=== PATIENT | male | born 1980 | race Hispanic/Latino ===

== ENCOUNTER 2016-10-26 22:30 | Emergency (ER) | payer SELFPAY ==
--- NOTE | 2016-10-27 02:48 | Emergency Department Report ---
- General Chief Complaint: Upper Respiratory Infection Stated Complaint: COLD SX Time Seen by Provider: 10/27/16 02:28 Source: patient, family Mode of arrival: Ambulatory Limitations: No Limitations - History of Present Illness Initial Comments: Presents complaining of head cold times couple of days. Reports headache, intermittent cough productive of clear-yellow sputum, runny nose, nasal congestion and body aches. Denies change or blurred vision, fever, chills, nausea, vomiting, abdominal pain or discomfort, chest pain, difficulty breathing or SOB, male symptoms. Denies known sick contacts. No other acute complaints today. - Related Data Previous Rx's Medication Instructions Recorded Last Taken Type HYDROcodone/APAP 5-325 [[place] 1 each PO Q6HR PRN #16 tablet 06/06/15 Unknown Rx 5/325] Sulfamethoxazole/Trimethoprim 1 each PO Q12H #20 tablet 06/06/15 Unknown Rx [Bactrim DS TAB] Diclofenac Sodium 75 mg PO BID #20 tablet.dr 02/07/16 Unknown Rx Famotidine [Pepcid] 20 mg PO BID #40 tablet 02/22/16 Unknown Rx Prednisone [predniSONE 10 mg 10 mg PO .TAPER #1 tab.ds.pk 02/22/16 Unknown Rx (6-Day Pack, 21 Tabs)] hydrOXYzine HCL [Atarax] 25 mg PO Q6HR PRN #20 tablet 02/22/16 Unknown Rx Clotrimazole [Jock Itch] 15 gm TP BID #1 cream..g. 08/11/16 Unknown Rx Hydrocortisone 1% [Hydrocortisone 1 applicatio TP BID #1 tube 08/11/16 Unknown Rx 1% CREAM] Naproxen [Naprosyn TAB] 500 mg PO BID PRN #20 tablet 08/11/16 Unknown Rx Neomycn/Baci Zn/Pmyx Bs/Pramox 28.4 gm TP BID #1 oint...g. 08/11/16 Unknown Rx [Triple Antibiotic Plus Ointmnt] Fluticasone [Flonase] 1 spray NS QDAY #1 bottle 10/27/16 Unknown Rx Ibuprofen [Motrin] 800 mg PO Q8HR PRN #10 tablet 10/27/16 Unknown Rx Loratadine/Pseudoephedrine 1 tab PO Q12H #30 tablet 10/27/16 Unknown Rx [Claritin-D 12HR] Allergies Allergy/AdvReac Type Severity Reaction Status Date / Time No Known Allergies Allergy Unverified 06/06/15 09:07 ED Review of Systems ROS: Stated complaint: COLD SX Other details as noted in HPI Comment: All other systems reviewed and negative ED Past Medical Hx - Past Medical History Previous Medical History?: No - Surgical History Additional Surgical History: l knee surgery - Social History Smoking Status: Current Every Day Smoker Substance Use Type: None - Medications Home Medications: Home Medications Medication Instructions Recorded Confirmed Last Taken Type HYDROcodone/APAP 5-325 [[place] 1 each PO Q6HR PRN #16 tablet 06/06/15 Unknown Rx 5/325] Sulfamethoxazole/Trimethoprim 1 each PO Q12H #20 tablet 06/06/15 Unknown Rx [Bactrim DS TAB] Diclofenac Sodium 75 mg PO BID #20 tablet.dr 02/07/16 Unknown Rx Famotidine [Pepcid] 20 mg PO BID #40 tablet 02/22/16 Unknown Rx Prednisone [predniSONE 10 mg 10 mg PO .TAPER #1 tab.ds.pk 02/22/16 Unknown Rx (6-Day Pack, 21 Tabs)] hydrOXYzine HCL [Atarax] 25 mg PO Q6HR PRN #20 tablet 02/22/16 Unknown Rx Clotrimazole [Jock Itch] 15 gm TP BID #1 cream..g. 08/11/16 Unknown Rx Hydrocortisone 1% [Hydrocortisone 1 applicatio TP BID #1 tube 08/11/16 Unknown Rx 1% CREAM] Naproxen [Naprosyn TAB] 500 mg PO BID PRN #20 tablet 08/11/16 Unknown Rx Neomycn/Baci Zn/Pmyx Bs/Pramox 28.4 gm TP BID #1 oint...g. 08/11/16 Unknown Rx [Triple Antibiotic Plus Ointmnt] Fluticasone [Flonase] 1 spray NS QDAY #1 bottle 10/27/16 Unknown Rx Ibuprofen [Motrin] 800 mg PO Q8HR PRN #10 tablet 10/27/16 Unknown Rx Loratadine/Pseudoephedrine 1 tab PO Q12H #30 tablet 10/27/16 Unknown Rx [Claritin-D 12HR] ED Physical Exam - General Limitations: No Limitations General appearance: alert, in no apparent distress - Head Head exam: Present: atraumatic, normocephalic, normal inspection - Eye Eye exam: Present: normal appearance, PERRL, EOMI. Absent: scleral icterus, conjunctival injection, periorbital swelling, periorbital tenderness - ENT ENT exam: Present: normal exam, normal orophraynx, mucous membranes moist, TM's normal bilaterally, normal external ear exam - Neck Neck exam: Present: normal inspection, full ROM. Absent: tenderness, meningismus, lymphadenopathy - Respiratory Respiratory exam: Present: normal lung sounds bilaterally. Absent: respiratory distress, wheezes, rales, rhonchi, stridor, chest wall tenderness, accessory muscle use, decreased breath sounds, prolonged expiratory - Cardiovascular Cardiovascular Exam: Present: regular rate, normal rhythm - GI/Abdominal GI/Abdominal exam: Present: soft, normal bowel sounds. Absent: tenderness - Extremities Exam Extremities exam: Present: normal inspection, full ROM, normal capillary refill. Absent: tenderness, pedal edema, joint swelling - Back Exam Back exam: Present: normal inspection, full ROM. Absent: tenderness - Neurological Exam Neurological exam: Present: alert, oriented X3, normal gait. Absent: motor sensory deficit - Psychiatric Psychiatric exam: Present: normal affect, normal mood - Skin Skin exam: Present: warm, dry, intact, normal color. Absent: rash, cyanosis, diaphoretic, erythema, petechiae, pallor, abrasion, ecchymosis ED Course Vital Signs 10/26/16 22:45 Temperature 98.2 F Pulse Rate 103 H Respiratory 18 Rate Blood Pressure 120/85 Blood Pressure 120/85 [Left] O2 Sat by Pulse 100 Oximetry Critical care attestation.: If time is entered above; I have spent that time in minutes in the direct care of this critically ill patient, excluding procedure time. ED Disposition Clinical Impression: URI (upper respiratory infection) Qualifiers: URI type: unspecified URI Qualified Code(s): J06.9 - Acute upper respiratory infection, unspecified Disposition: DISCHARGED TO HOME OR SELFCARE Is pt being admited?: No Does the pt Need Aspirin: No Condition: Stable Instructions: Upper Respiratory Infection (ED) Referrals: PRIMARY CARE, [Primary Care Provider] - 2-3 Days [facility] [Outside] - 2-3 Days
[2016-10-27 03:42] VITALS: BP 114/73
== END 2016-10-27 03:43 | disposition home or self-care (01) ==
LOC: ED 22:30
DX: J06.9 Acute upper respiratory infection, unspecified (principal); F17.200 Nicotine dependence, unspecified, uncomplicated
CPT/HCPCS: 99282

== ENCOUNTER 2018-10-16 08:30 | Emergency (ER) | payer SELFPAY ==
[2018-10-16 09:20] LABS: Bacteria,Urine 1+ /HPF (Negative); Bilirubin,Urine NEG (Negative); Blood,Urine NEG (Negative); Color,Urine Yellow (Yellow); Mucus,Urine FEW /HPF; Protein,Urine <15 mg/dL mg/dL (Negative)
[2018-10-16] MEDS ORDERED: IBUPROFEN PO ONE (09:41)
[2018-10-16] MEDS ORDERED: XYLOCAINE 1% 20 mL INFILTRATI ONE (09:41)
--- NOTE | 2018-10-16 09:45 | Emergency Department Report ---
<YESI PLEITEZ BELINDA - Last Filed: 10/16/18 10:21> ED General Adult HPI - General Chief complaint: Abdominal Pain Stated complaint: LOWER BACK PAIN/BOIL ON GROIN AREA Time Seen by Provider: 10/16/18 09:32 - Related Data Previous Rx's Medication Instructions Recorded Last Taken Type Sulfamethoxazole/Trimethoprim 1 each PO Q12H #20 tablet 06/06/15 Unknown Rx [Bactrim DS TAB] Prednisone [predniSONE 10 mg 10 mg PO .TAPER #1 tab.ds.pk 02/22/16 Unknown Rx (6-Day Pack, 21 Tabs)] Naproxen [Naprosyn TAB] 500 mg PO BID PRN #20 tablet 08/11/16 Unknown Rx Neomycn/Bacitrc/Polymyx/Pramox 28.4 gm TP BID #1 oint...g. 08/11/16 Unknown Rx [Triple Antibiotic Plus Ointmnt] Fluticasone [Flonase] 1 spray NS QDAY #1 bottle 10/27/16 Unknown Rx Benzonatate [Tessalon Perles] 100 mg PO Q8HR #15 capsule 08/03/18 Unknown Rx Clindamycin [Clindamycin CAP] 300 mg PO Q8H 7 Days cap 10/16/18 Unknown Rx HYDROcodone/APAP 5-325 [[place] 1 each PO Q6HR PRN #15 tablet 10/16/18 Unknown Rx 5/325] Ibuprofen [Motrin] 800 mg PO Q8HR PRN #20 tablet 10/16/18 Unknown Rx Metformin HCl 500 mg PO BID #60 tablet 10/16/18 Unknown Rx methOCARBAMOL [Robaxin TAB] 500 mg PO Q6H PRN #15 tablet 10/16/18 Unknown Rx Amoxicillin/Potassium Clav 1 each PO BID #10 tablet 10/31/18 Unknown Rx [Augmentin 875-125 Tablet] Benzonatate [Tessalon Perles] 100 mg PO Q8HR PRN #30 capsule 10/31/18 Unknown Rx Fluticasone [Flonase] 1 spray NS QDAY #1 bottle 10/31/18 Unknown Rx Allergies Allergy/AdvReac Type Severity Reaction Status Date / Time No Known Allergies Allergy Unverified 06/06/15 09:07 ED Past Medical Hx - Medications Home Medications: Home Medications Medication Instructions Recorded Confirmed Last Taken Type Sulfamethoxazole/Trimethoprim 1 each PO Q12H #20 tablet 06/06/15 Unknown Rx [Bactrim DS TAB] Prednisone [predniSONE 10 mg 10 mg PO .TAPER #1 tab.ds.pk 02/22/16 Unknown Rx (6-Day Pack, 21 Tabs)] Naproxen [Naprosyn TAB] 500 mg PO BID PRN #20 tablet 08/11/16 Unknown Rx Neomycn/Bacitrc/Polymyx/Pramox 28.4 gm TP BID #1 oint...g. 08/11/16 Unknown Rx [Triple Antibiotic Plus Ointmnt] Fluticasone [Flonase] 1 spray NS QDAY #1 bottle 10/27/16 Unknown Rx Benzonatate [Tessalon Perles] 100 mg PO Q8HR #15 capsule 08/03/18 Unknown Rx Clindamycin [Clindamycin CAP] 300 mg PO Q8H 7 Days cap 10/16/18 Unknown Rx HYDROcodone/APAP 5-325 [[place] 1 each PO Q6HR PRN #15 tablet 10/16/18 Unknown Rx 5/325] Ibuprofen [Motrin] 800 mg PO Q8HR PRN #20 tablet 10/16/18 Unknown Rx Metformin HCl 500 mg PO BID #60 tablet 10/16/18 Unknown Rx methOCARBAMOL [Robaxin TAB] 500 mg PO Q6H PRN #15 tablet 10/16/18 Unknown Rx Amoxicillin/Potassium Clav 1 each PO BID #10 tablet 10/31/18 Unknown Rx [Augmentin 875-125 Tablet] Benzonatate [Tessalon Perles] 100 mg PO Q8HR PRN #30 capsule 10/31/18 Unknown Rx Fluticasone [Flonase] 1 spray NS QDAY #1 bottle 10/31/18 Unknown Rx ED Disposition Clinical Impression: Abscess, Muscle strain, Hyperglycemia Disposition: -01 TO HOME OR SELFCARE Condition: Stable Instructions: Muscle Strain (ED), Abscess Incision and Drainage (ED), Diabetes Mellitus Type 2 in Adults (ED), Abscess (ED) Additional Instructions: Please take the packing out of the abscess in 2-3 days. Please use a warm compress as this will help with healing and discomfort. Please ensure to take all of your antibiotics. Prescriptions: Clindamycin [Clindamycin CAP] 300 mg PO Q8H 7 Days cap HYDROcodone/APAP 5-325 [[place] 5/325] 1 each PO Q6HR PRN #15 tablet PRN Reason: Pain Ibuprofen [Motrin] 800 mg PO Q8HR PRN #20 tablet PRN Reason: Pain Metformin HCl 500 mg PO BID #60 tablet methOCARBAMOL [Robaxin TAB] 500 mg PO Q6H PRN #15 tablet PRN Reason: Pain Referrals: ANDERSON MELCHOR MD [Primary Care Provider] - 3-5 Days Forms: Work/School Release Form(ED) I & D Note - I & D Note I & D Note: The area was prepared and draped in the usual, sterile manner. The site was anesthetized with 3 mL of 2% lidocaine with epinephrine. A linear incision along the local skin lines was made and the purulent material expressed. The abcess was explored thoroughly and sequestered pockets were opened. Bleeding was minimal. Packing: idodoform. Followup: The patient tolerated the procedure well without complications. Standard post-procedure care was explained and return precautions are given. <SHIVANI CARTER - Last Filed: 12/02/18 09:01> ED General Adult HPI - General Source: patient Mode of arrival: Ambulatory Limitations: No Limitations - History of Present Illness Initial comments: Patient is a 38-year-old male who is presenting with some right back pain has been present for the past several days. Patient states that it hurts worse when he moves and is worried he may have a kidney stone despite having no urinary frequency dysuria or hematuria. 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 Patient also is complaining of right groin abscess of his developed over the last 2 days. Patient states that his pain in this area as 8 out of 10 in severity. There is no radiation of the pain from the right groin to the right back. Patient denies any nausea vomiting fevers chills at this time. Patient denies any past medical problems. Patient does have a family history of diabetes. ED Review of Systems ROS: Stated complaint: LOWER BACK PAIN/BOIL ON GROIN AREA Other details as noted in HPI Comment: All other systems reviewed and negative ED Past Medical Hx - Past Medical History Previous Medical History?: No - Surgical History Past Surgical History?: Yes Additional Surgical History: l knee surgery - Social History Smoking Status: Current Every Day Smoker Substance Use Type: None ED Physical Exam - General Limitations: No Limitations General appearance: alert, in no apparent distress - Head Head exam: Present: atraumatic, normocephalic - Eye Eye exam: Present: normal appearance - ENT ENT exam: Present: mucous membranes moist - Neck Neck exam: Present: normal inspection - Respiratory Respiratory exam: Present: normal lung sounds bilaterally. Absent: respiratory distress, wheezes, rales - Cardiovascular Cardiovascular Exam: Present: regular rate, normal rhythm. Absent: systolic murmur, diastolic murmur, rubs, gallop - GI/Abdominal GI/Abdominal exam: Present: soft, normal bowel sounds. Absent: distended, tenderness, guarding, rebound - Rectal Rectal exam: Present: deferred - exam: Absent: normal inspection (patient has a quarter-sized area of erythema with central fluctuance in the right groin. This does not appear to involve the scrotum or penis.) - Extremities Exam Extremities exam: Present: normal inspection - Back Exam Back exam: Present: normal inspection, tenderness (right paraspinal lumbar area shows some mild tenderness. There is no overlying erythema or rash.) - Neurological Exam Neurological exam: Present: alert, oriented X3 - Psychiatric Psychiatric exam: Present: normal affect, normal mood - Skin Skin exam: Present: warm, dry, intact, normal color. Absent: rash ED Course Vital Signs 10/16/18 08:53 Temperature 98.3 F Pulse Rate 82 Respiratory 20 Rate Blood Pressure 125/81 O2 Sat by Pulse 96 Oximetry - Reevaluation(s) Reevaluation #1: 10/16/18 09:44 Patient's back pain likely musculoskeletal in nature and will be treated with NSAIDs and muscle relaxant. Patient be sent to a treatment room for I&D of his abscess. Of note patient's urinalysis that was ordered from triage to show a greater than 500 glucose. Accu-Chek will be performed as well. Patient does have a family history diabetes in his father. Critical care attestation.: If time is entered above; I have spent that time in minutes in the direct care of this critically ill patient, excluding procedure time. ED Disposition Is pt being admited?: No Does the pt Need Aspirin: No Time of Disposition: 10:20
[2018-10-18 11:41] VITALS: BP 125/81
== END 2018-10-16 10:35 | disposition home or self-care (01) ==
LOC: ED 08:30
DX: L02.214 Cutaneous abscess of groin (principal); M54.5 Low back pain; F17.200 Nicotine dependence, unspecified, uncomplicated
CPT/HCPCS: 81001; 82962

== ENCOUNTER 2018-10-31 05:15 | Emergency (ER) | payer SELFPAY ==
[2018-10-31 05:29] VITALS: BP 119/82
--- NOTE | 2018-10-31 09:17 | Emergency Department Report ---
Minor Respiratory - HPI Chief Complaint: Upper Respiratory Infection Stated Complaint: COLD SX Time Seen by Provider: 10/31/18 08:29 Duration: 2 Days Pain Location: Nose Severity: moderate Minor Respiratory: Yes Rhinorrhea, Yes Able to Tolerate Fluids, Yes Cough, Yes Sick Contacts (son), No Sore Throat, No Ear Pain, No Hemoptysis, No Chest Pain, No Shortness of Breath, No Fever Other History: This is a 38-year-old male who presents with cough, congestion, and sinus pressure for 2 days. Patient is currently taking Tylenol with improvement and she feels a fever he is to have that sinus pressure. Patient states his son was sick a few weeks back he denies chest pain, shortness of breath, wheezing, myalgia, nausea, vomiting, or diarrhea. ED Review of Systems ROS: Stated complaint: COLD SX Other details as noted in HPI Constitutional: chills, fever ENT: congestion. denies: ear pain, throat pain, dental pain, hearing loss, epistaxis Respiratory: cough. denies: shortness of breath, wheezing Cardiovascular: denies: chest pain, palpitations Gastrointestinal: denies: abdominal pain, nausea, diarrhea Skin: denies: rash, lesions Neurological: denies: headache, weakness, paresthesias Psychiatric: denies: anxiety, depression ED Past Medical Hx - Past Medical History Previous Medical History?: No - Surgical History Past Surgical History?: Yes Additional Surgical History: l knee surgery - Social History Smoking Status: Current Every Day Smoker Substance Use Type: None - Medications Home Medications: Home Medications Medication Instructions Recorded Confirmed Last Taken Type Sulfamethoxazole/Trimethoprim 1 each PO Q12H #20 tablet 06/06/15 Unknown Rx [Bactrim DS TAB] Prednisone [predniSONE 10 mg 10 mg PO .TAPER #1 tab.ds.pk 02/22/16 Unknown Rx (6-Day Pack, 21 Tabs)] Naproxen [Naprosyn TAB] 500 mg PO BID PRN #20 tablet 08/11/16 Unknown Rx Neomycn/Bacitrc/Polymyx/Pramox 28.4 gm TP BID #1 oint...g. 08/11/16 Unknown Rx [Triple Antibiotic Plus Ointmnt] Fluticasone [Flonase] 1 spray NS QDAY #1 bottle 10/27/16 Unknown Rx Benzonatate [Tessalon Perles] 100 mg PO Q8HR #15 capsule 08/03/18 Unknown Rx Clindamycin [Clindamycin CAP] 300 mg PO Q8H 7 Days cap 10/16/18 Unknown Rx HYDROcodone/APAP 5-325 [[place] 1 each PO Q6HR PRN #15 tablet 10/16/18 Unknown Rx 5/325] Ibuprofen [Motrin] 800 mg PO Q8HR PRN #20 tablet 10/16/18 Unknown Rx Metformin HCl 500 mg PO BID #60 tablet 10/16/18 Unknown Rx methOCARBAMOL [Robaxin TAB] 500 mg PO Q6H PRN #15 tablet 10/16/18 Unknown Rx Amoxicillin/Potassium Clav 1 each PO BID #10 tablet 10/31/18 Unknown Rx [Augmentin 875-125 Tablet] Benzonatate [Tessalon Perles] 100 mg PO Q8HR PRN #30 capsule 10/31/18 Unknown Rx Fluticasone [Flonase] 1 spray NS QDAY #1 bottle 10/31/18 Unknown Rx Minor Respiratory Exam - Exam General: Vital signs noted. No distress. Alert and acting appropriately. HEENT: Yes Pharyngeal Erythema (erythematous posterior pharynx, uvula midline), Yes Moist Mucous Membranes, Yes Rhinorrhea (turbinates congested with purulent discharge), Yes Maxillary Tenderness, No Pharyngeal Exudates, No Conjuctival Injection, No Frontal Tenderness Ear: Neither TM Bulge, Neither TM Erythema, Neither EAC Pain, Neither EAC Discharge Neck: Yes Supple, No Adenopathy Lungs: Yes Good Air Exchange, No Wheezes, No Ronchi, No Stridor, No Cough, No Labored Respirations, No Retractions, No Use of Accessory Muscles, No Other Abnormal Lung Sounds Heart: Yes Regular, No Murmur Abdomen: Yes Normal Bowel Sounds, No Tenderness, No Peritoneal Signs Skin: No Rash, No Edema Neurologic: Alert and oriented, no deficits. Musculoskeletal: Unremarkable. ED Course Vital Signs 10/31/18 05:28 Temperature 98.5 F Pulse Rate 98 H Respiratory 18 Rate Blood Pressure 119/82 O2 Sat by Pulse 93 Oximetry ED Medical Decision Making - Medical Decision Making 38 y.o. male that presents with cough and congestion for 2 days. Patient examined by me and stable. No distress noted. Vitals normal. Acute maxillary sinusitis. Start flonase, Tessalon Perles, and Augmentin. She is instructed to take Tylenol or ibuprofen for pains and to drink a lot of liquids. He was given a note to return to work in 3 days. Follow up with Primary Care Provider in 2-3 days. He will return to the emergency room if she does not get better as discussed. Critical care attestation.: If time is entered above; I have spent that time in minutes in the direct care of this critically ill patient, excluding procedure time. ED Disposition Clinical Impression: Cough in adult Acute maxillary sinusitis Qualifiers: Recurrence: non-recurrent Qualified Code(s): J01.00 - Acute maxillary sinusitis, unspecified Disposition: TO HOME OR SELFCARE Is pt being admited?: No Does the pt Need Aspirin: No Condition: Stable Instructions: Sinusitis (ED) Additional Instructions: Use warm moist compresses over sinuses. Use ibuprofen or Tylenol for pain. Use nasal saline spray. Avoid taking antihistamines. Follow up with Primary Care Provider if fever, short of breath, chest pain, or symptoms do not improve as discussed. Prescriptions: Amoxicillin/Potassium Clav [Augmentin 875-125 Tablet] 1 each PO BID #10 tablet Benzonatate [Tessalon Perles] 100 mg PO Q8HR PRN #30 capsule PRN Reason: Cough Fluticasone [Flonase] 1 spray NS QDAY #1 bottle Referrals: [facility] [Outside] - 3-5 Days [facility] [Outside] - 3-[address] [facility] [Outside] - 3-5 Days Forms: Work/School Release Form(ED) Time of Disposition: 09:19
== END 2018-10-31 09:27 | disposition home or self-care (01) ==
LOC: ED 05:15
DX: J01.00 Acute maxillary sinusitis, unspecified (principal); F17.200 Nicotine dependence, unspecified, uncomplicated
CPT/HCPCS: 99282

== ENCOUNTER 2020-01-02 13:37 | Emergency (ER) | payer SELFPAY ==
[2020-01-02 13:55] VITALS: BP 127/92
--- NOTE | 2020-01-02 14:52 | Emergency Department Report ---
ED Abdominal Pain HPI - General Chief Complaint: Abdominal Pain Stated Complaint: STOMACH PAIN/DIARRHEA Time Seen by Provider: 01/02/20 14:35 Source: patient Mode of arrival: Ambulatory Limitations: No Limitations - History of Present Illness Initial Comments: 39-year-old male who presents to the emergency room with diffuse abdominal pain and diarrhea for 2 days. No significant past medical history. Patient states he ate [employer] Friday night and symptoms started shortly after eating dinner. Denies fever, chills, nausea, vomiting, shortness of breath, chest pain, wheezing, or contact with sick persons. MD Complaint: abdominal pain Onset/Timin -: days(s) Location: diffuse Radiation: none Migration to: no migration Severity: mild Severity scale (0 -10): 3 Quality: cramping Consistency: intermittent Improves With: nothing Worsens With: bowel movement Context: possible food poisoning Associated Symptoms: diarrhea. denies: nausea, vomiting, fever, chills, constipation, dysuria, hematemesis, hematochezia, melena, hematuria, anorexia, syncope - Related Data Previous Rx's Medication Instructions Recorded Last Taken Type Sulfamethoxazole/Trimethoprim 1 each PO Q12H #20 tablet 06/06/15 Unknown Rx [Bactrim DS TAB] Prednisone [predniSONE 10 mg 10 mg PO .TAPER #1 tab.ds.pk 02/22/16 Unknown Rx (6-Day Pack, 21 Tabs)] Naproxen [Naprosyn TAB] 500 mg PO BID PRN #20 tablet 08/11/16 Unknown Rx Neomycn/Bacitrc/Polymyx/Pramox 28.4 gm TP BID #1 oint...g. 08/11/16 Unknown Rx [Triple Antibiotic Plus Ointmnt] Fluticasone [Flonase] 1 spray NS QDAY #1 bottle 10/27/16 Unknown Rx Benzonatate [Tessalon Perles] 100 mg PO Q8HR #15 capsule 08/03/18 Unknown Rx Clindamycin [Clindamycin CAP] 300 mg PO Q8H 7 Days cap 10/16/18 Unknown Rx HYDROcodone/APAP 5-325 [[place] 1 each PO Q6HR PRN #15 tablet 10/16/18 Unknown Rx 5/325] Ibuprofen [Motrin] 800 mg PO Q8HR PRN #20 tablet 10/16/18 Unknown Rx Metformin HCl 500 mg PO BID #60 tablet 10/16/18 Unknown Rx methOCARBAMOL [Robaxin TAB] 500 mg PO Q6H PRN #15 tablet 10/16/18 Unknown Rx Amoxicillin/Potassium Clav 1 each PO BID #10 tablet 10/31/18 Unknown Rx [Augmentin 875-125 Tablet] Benzonatate [Tessalon Perles] 100 mg PO Q8HR PRN #30 capsule 10/31/18 Unknown Rx Fluticasone [Flonase] 1 spray NS QDAY #1 bottle 10/31/18 Unknown Rx Allergies Allergy/AdvReac Type Severity Reaction Status Date / Time No Known Allergies Allergy Unverified 06/06/15 09:07 ED Review of Systems ROS: Stated complaint: STOMACH PAIN/DIARRHEA Other details as noted in HPI Constitutional: denies: chills, fever Respiratory: denies: cough, shortness of breath, wheezing Cardiovascular: denies: chest pain, palpitations Gastrointestinal: abdominal pain, diarrhea. denies: nausea, constipation, hematemesis, melena, hematochezia Genitourinary: denies: urgency, dysuria Musculoskeletal: denies: back pain, joint swelling, arthralgia Skin: denies: rash, lesions Neurological: denies: headache, weakness, paresthesias Psychiatric: denies: anxiety, depression ED Past Medical Hx - Past Medical History Previous Medical History?: No - Surgical History Past Surgical History?: Yes Additional Surgical History: knee surgery - Social History Smoking Status: Current Every Day Smoker Substance Use Type: None - Medications Home Medications: Home Medications Medication Instructions Recorded Confirmed Last Taken Type Sulfamethoxazole/Trimethoprim 1 each PO Q12H #20 tablet 06/06/15 Unknown Rx [Bactrim DS TAB] Prednisone [predniSONE 10 mg 10 mg PO .TAPER #1 tab.ds.pk 02/22/16 Unknown Rx (6-Day Pack, 21 Tabs)] Naproxen [Naprosyn TAB] 500 mg PO BID PRN #20 tablet 08/11/16 Unknown Rx Neomycn/Bacitrc/Polymyx/Pramox 28.4 gm TP BID #1 oint...g. 08/11/16 Unknown Rx [Triple Antibiotic Plus Ointmnt] Fluticasone [Flonase] 1 spray NS QDAY #1 bottle 10/27/16 Unknown Rx Benzonatate [Tessalon Perles] 100 mg PO Q8HR #15 capsule 08/03/18 Unknown Rx Clindamycin [Clindamycin CAP] 300 mg PO Q8H 7 Days cap 10/16/18 Unknown Rx HYDROcodone/APAP 5-325 [[place] 1 each PO Q6HR PRN #15 tablet 10/16/18 Unknown Rx 5/325] Ibuprofen [Motrin] 800 mg PO Q8HR PRN #20 tablet 10/16/18 Unknown Rx Metformin HCl 500 mg PO BID #60 tablet 10/16/18 Unknown Rx methOCARBAMOL [Robaxin TAB] 500 mg PO Q6H PRN #15 tablet 10/16/18 Unknown Rx Amoxicillin/Potassium Clav 1 each PO BID #10 tablet 10/31/18 Unknown Rx [Augmentin 875-125 Tablet] Benzonatate [Tessalon Perles] 100 mg PO Q8HR PRN #30 capsule 10/31/18 Unknown Rx Fluticasone [Flonase] 1 spray NS QDAY #1 bottle 10/31/18 Unknown Rx ED Physical Exam - General Limitations: No Limitations General appearance: alert, in no apparent distress, obese - Respiratory Respiratory exam: Present: normal lung sounds bilaterally. Absent: respiratory distress - Cardiovascular Cardiovascular Exam: Present: regular rate, normal rhythm. Absent: systolic murmur, diastolic murmur, rubs, gallop - GI/Abdominal GI/Abdominal exam: Present: soft, normal bowel sounds. Absent: distended, tenderness, guarding, rebound, rigid, organomegaly, pulsatile mass, hernia - Extremities Exam Extremities exam: Present: normal inspection - Back Exam Back exam: Absent: CVA tenderness (R), CVA tenderness (L) - Neurological Exam Neurological exam: Present: alert, oriented X3, normal gait - Psychiatric Psychiatric exam: Present: normal affect, normal mood - Skin Skin exam: Present: warm, dry, intact, normal color. Absent: rash ED Course Vital Signs 01/02/20 13:52 Temperature 97.9 F Pulse Rate 91 H Respiratory 20 Rate Blood Pressure 127/92 O2 Sat by Pulse 98 Oximetry ED Medical Decision Making - Lab Data Result diagrams: 01/02/20 15:14 01/02/20 15:14 Lab Results 01/02/20 01/02/20 01/02/20 Range/Units 15:14 15:14 16:28 WBC 8.5 (4.5-11.0) K/mm3 RBC 5.47 H (3.65-5.03) M/mm3 Hgb 16.0 H (11.8-15.2) gm/dl Hct 47.1 H (35.5-45.6) % MCV 86 (84-94) fl MCH 29 (28-32) pg MCHC 34 (32-34) % RDW 13.6 (13.2-15.2) % Plt Count 280 (140-440) K/mm3 Lymph % (Auto) 43.2 H (13.4-35.0) % [place] % (Auto) 9.9 H (0.0-7.3) % Eos % (Auto) 2.9 (0.0-4.3) % Baso % (Auto) 0.9 (0.0-1.8) % Lymph # 3.7 (1.2-5.4) K/mm3 [place] # 0.8 (0.0-0.8) K/mm3 Eos # 0.2 (0.0-0.4) K/mm3 Baso # 0.1 (0.0-0.1) K/mm3 Seg Neutrophils % 43.1 (40.0-70.0) % Seg Neutrophils # 3.7 (1.8-7.7) K/mm3 Sodium 136 L (137-145) mmol/L Potassium 4.2 (3.6-5.0) mmol/L Chloride 99.2 (98-107) mmol/L Carbon Dioxide 23 (22-30) mmol/L Anion Gap 18 mmol/L BUN 9 (9-20) mg/dL Creatinine 0.9 (0.8-1.5) mg/dL Estimated GFR > 60 ml/min BUN/Creatinine Ratio 10 % Glucose 248 H (75-100) mg/dL Calcium 9.3 (8.4-10.2) mg/dL Total Bilirubin 0.20 (0.1-1.2) mg/dL AST 21 (5-40) units/L ALT < 5 L (7-56) units/L Alkaline Phosphatase 83 (35-129) units/L Total Protein 7.2 (6.3-8.2) g/dL Albumin 4.0 (3.9-5) g/dL Albumin/Globulin Ratio 1.3 % Lipase 56 (13-60) units/L Urine Color Yellow (Yellow) Urine Turbidity Clear (Clear) Urine pH 6.0 (5.0-7.0) Ur Specific [place] 1.007 (1.003-1.030) Urine Protein <15 mg/dl (Negative) mg/dL Urine Glucose (UA) >=500 (Negative) mg/dL Urine Ketones Neg (Negative) mg/dL Urine Blood Neg (Negative) Urine Nitrite Neg (Negative) Urine Bilirubin Neg (Negative) Urine Urobilinogen < 2.0 (<2.0) mg/dL Ur Leukocyte Esterase Neg (Negative) Urine WBC (Auto) < 1.0 (0.0-6.0) /HPF Urine RBC (Auto) 2.0 (0.0-6.0) /HPF Urine Sperm Few (SERGEANT OF CORRECTIONS) /HPF - Medical Decision Making This is a 39 y.o. male that presents with abdominal pain and diarrhea 2 days. No significant past medical history. Vitals are stable and patient in no acute distress. Work-up: CMP, CBC, and urinalysis. Abdomen nontender on exam. Given IV fluids. Instructed to take Imodium for diarrhea and increase fluid intake. Discussed plan with patient and agreed to plan. No further questions noted by the patient. Discharged home in stable condition. Follow up with PCP in 2-3 days. Critical care attestation.: If time is entered above; I have spent that time in minutes in the direct care of this critically ill patient, excluding procedure time. ED Disposition Clinical Impression: Gastroenteritis Diarrhea Qualifiers: Diarrhea type: functional diarrhea Qualified Code(s): K59.1 - Functional diarrhea Disposition: - TO HOME OR SELFCARE Is pt being admited?: No Condition: Stable Instructions: Gastroenteritis (ED) Additional Instructions: Frequent hand washing is important to reduce spread. Prompt disinfection of contaminated surfaces with household chlorine bleach- based shelter director and washing of soiled clothing and bedding should be advised. If food or water is thought to be contaminated, it should be avoided. Increase fluid intake. Drinks high in sugars such as carbonated soft drinks, fruit juice, and highly sugared liquids should be avoided. Referrals: [facility] [Outside] - 3-5 Days [facility] [Outside] - 3-5 Days FLO GOLDEN MD [Staff Physician] - 3-5 Days Time of Disposition: 17:02
[2020-01-02 15:35] LABS: Basophils # (Auto) 0.1 K/mm3 (0.0-0.1); Basophils % (Auto) 0.9 % (0.0-1.8); Eosinophils # (Auto) 0.2 K/mm3 (0.0-0.4); Eosinophils % (Auto) 2.9 % (0.0-4.3); Hematocrit 47.1 % (35.5-45.6); Lymphocytes # (Auto) 3.7 K/mm3 (1.2-5.4); Lymphocytes % (Auto) 43.2 % (13.4-35.0); Mean Corpuscular HGB Conc 34 % (32-34); Mean Corpuscular Volume 86 fl (84-94); Monocytes # (Auto) 0.8 K/mm3 (0.0-0.8); Monocytes % (Auto) 9.9 % (0.0-7.3); Platelet Count 280 K/mm3 (140-440); Red Blood Count 5.47 M/mm3 (3.65-5.03); Red Cell Distribution Width 13.6 % (13.2-15.2)
[2020-01-02 15:53] LABS: BUN/Creatinine Ratio 10; Blood Urea Nitrogen 9 mg/dL (9-20); Calcium 9.3 mg/dL (8.4-10.2); Hemolysis Index 7
[2020-01-02 15:55] LABS: Alanine Aminotransferase < 5 units/L (7-56)
[2020-01-02 16:43] LABS: Bilirubin,Urine NEG (Negative); Blood,Urine NEG (Negative); Color,Urine Yellow (Yellow); Protein,Urine <15 mg/dL mg/dL (Negative); Sperm,Urine FEW /HPF (NP); Urobilinogen,Urine < 2.0 mg/dL (<2.0); WBC,Urine < 1.0 /HPF (0.0-6.0)
[2020-01-02] MEDS ORDERED: SODIUM CHLORIDE 0.9% 1000 ML 1,000 ML IV ONE (16:55)
== END 2020-01-02 17:13 | disposition home or self-care (01) ==
LOC: ED 13:37
DX: K52.9 Noninfective gastroenteritis and colitis, unspecified (principal); F17.200 Nicotine dependence, unspecified, uncomplicated; Z98.890 Other specified postprocedural states; Z79.1 Long term (current) use of non-steroidal anti-inflammatories (NSAID); Z79.2 Long term (current) use of antibiotics; Z79.899 Other long term (current) drug therapy
CPT/HCPCS: 36415; 80053; 81001; 83690; 85025; 99283

== ENCOUNTER 2020-01-31 05:48 | Emergency (ER) | payer SELFPAY ==
[2020-01-31 06:08] VITALS: BP 133/89
[2020-01-31] MEDS ORDERED: HYDROGEN PEROXIDE 118 ML SOLUTION TP ONE (07:47)
[2020-01-31] MEDS ORDERED: DIPHtheria,PERTUSSIS(ACELL),TETANUS VACCINE/PF 0.5 ML VIAL IM ONE (07:53)
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
--- NOTE | 2020-01-31 09:30 | XRay Report ---
LEFT HAND 3 VIEWS INDICATION / CLINICAL INFORMATION: Pain along fourth and fifth MCP joints. Possible glass foreign body. COMPARISON: None available. FINDINGS: BONES and JOINT(S): No acute fracture or subluxation. No significant arthritis. SOFT TISSUES: Possible radiopaque foreign bodies are seen adjacent to the heads of the fourth and fif th metacarpals measuring 2-3 mm and best seen on the lateral view. No additional significant abnormal ity. ADDITIONAL FINDINGS: None. IMPRESSION: Possible radiopaque foreign bodies as above. Signer Name: Eduardo Diaz MD Signed: 01/31/2020 9:25 AM Workstation Name: [id number]
== END 2020-01-31 10:06 | disposition home or self-care (01) ==
LOC: ED 05:48
DX: S61.412A Laceration without foreign body of left hand, initial encounter (principal); S69.92XA Unspecified injury of left wrist, hand and finger(s), initial encounter; F17.200 Nicotine dependence, unspecified, uncomplicated; Z79.899 Other long term (current) drug therapy; W25.XXXA Contact with sharp glass, initial encounter; Y93.89 Activity, other specified; Y92.89 Other specified places as the place of occurrence of the external cause; Y99.8 Other external cause status
CPT/HCPCS: 90471; 90715; 99283

== ENCOUNTER 2020-08-08 08:43 | Emergency (ER) | payer SELFPAY ==
[2020-08-08 09:34] LABS: Bilirubin,Urine NEG (Negative); Blood,Urine NEG (Negative); Color,Urine Yellow (Yellow); Mucus,Urine FEW /HPF; Protein,Urine <15 mg/dL mg/dL (Negative); WBC,Urine < 1.0 /HPF (0.0-6.0)
[2020-08-08 09:40] LABS: Amphetamine Screen,Urine PRESUMPTIVE POSITIVE; Benzodiazepines Screen,Urine PRESUMPTIVE NEGATIVE; Cannabinoid Screen,Urine PRESUMPTIVE POSITIVE; Cocaine Screen,Urine PRESUMPTIVE NEGATIVE; Methadone Screen,Urine PRESUMPTIVE NEGATIVE; Opiate Screen,Urine PRESUMPTIVE NEGATIVE
--- NOTE | 2020-08-08 09:42 | Emergency Department Report ---
ED Psych HPI - General Chief Complaint: Psych Stated Complaint: SI Time Seen by Provider: 08/08/20 09:14 Source: patient Mode of arrival: Ambulatory - History of Present Illness Initial Comments: Patient is 40 years old male with history of bipolar disorder and methamphetamine abuse. Patient presented to the ER by himself stating that he is suicidal. Patient stated that he used meth last night and since then he has been having suicidal ideation. Patient stating that he is hearing voices asking him to kill himself. Patient presented with scratches on his arm but there is no deep laceration. Patient denied any homicidal ideation however he is having visual hallucination also. When I asked him if the symptoms started before start using meth he stated that he did not have any symptoms prior using meth last night. MD Complaint: suicidal ideation, feels depressed -: Last night Associated Psychiatric Symptoms: depression, suicidal ideation, auditory hallucinations, visual hallucinations History of same: Yes - Related Data Previous Rx's Medication Instructions Recorded Last Taken Type Sulfamethoxazole/Trimethoprim 1 each PO Q12H #20 tablet 06/06/15 Unknown Rx [Bactrim DS TAB] Prednisone [predniSONE 10 mg 10 mg PO .TAPER #1 tab.ds.pk 02/22/16 Unknown Rx (6-Day Pack, 21 Tabs)] Naproxen [Naprosyn TAB] 500 mg PO BID PRN #20 tablet 08/11/16 Unknown Rx Neomycn/Bacitrc/Polymyx/Pramox 28.4 gm TP BID #1 oint...g. 08/11/16 Unknown Rx [Triple Antibiotic Plus Ointmnt] Fluticasone [Flonase] 1 spray NS QDAY #1 bottle 10/27/16 Unknown Rx Benzonatate [Tessalon Perles] 100 mg PO Q8HR #15 capsule 08/03/18 Unknown Rx Clindamycin [Clindamycin CAP] 300 mg PO Q8H 7 Days cap 10/16/18 Unknown Rx HYDROcodone/APAP 5-325 [[place] 1 each PO Q6HR PRN #15 tablet 10/16/18 Unknown Rx 5/325] Ibuprofen [Motrin] 800 mg PO Q8HR PRN #20 tablet 10/16/18 Unknown Rx Metformin HCl 500 mg PO BID #60 tablet 10/16/18 Unknown Rx methOCARBAMOL [Robaxin TAB] 500 mg PO Q6H PRN #15 tablet 10/16/18 Unknown Rx Amoxicillin/Potassium Clav 1 each PO BID #10 tablet 10/31/18 Unknown Rx [Augmentin 875-125 Tablet] Benzonatate [Tessalon Perles] 100 mg PO Q8HR PRN #30 capsule 10/31/18 Unknown Rx Fluticasone [Flonase] 1 spray NS QDAY #1 bottle 10/31/18 Unknown Rx Ibuprofen [Motrin 800 MG tab] 800 mg PO Q8HR PRN #15 tablet 01/31/20 Unknown Rx Mupirocin [Bactroban 2% OINT] 1 applic TP TID 7 Days #1 tube 01/31/20 Unknown Rx Allergies Allergy/AdvReac Type Severity Reaction Status Date / Time No Known Allergies Allergy Verified 01/31/20 06:07 ED Review of Systems ROS: Stated complaint: SI Other details as noted in HPI Comment: All other systems reviewed and negative Constitutional: denies: chills, fever Respiratory: denies: cough, shortness of breath, SOB with exertion, SOB at rest, wheezing Cardiovascular: denies: chest pain, palpitations Gastrointestinal: denies: abdominal pain, nausea, vomiting, diarrhea, constipation, hematemesis, melena, hematochezia Musculoskeletal: denies: back pain Neurological: denies: headache, weakness, numbness, paresthesias, confusion, abnormal gait Psychiatric: depression, auditory hallucinations, visual hallucinations, suicidal thoughts. denies: homicidal thoughts ED Past Medical Hx - Past Medical History Previous Medical History?: No - Surgical History Past Surgical History?: Yes Additional Surgical History: left knee surgery - Social History Smoking Status: Current Every Day Smoker Substance Use Type: Methamphetamines - Medications Home Medications: Home Medications Medication Instructions Recorded Confirmed Last Taken Type Sulfamethoxazole/Trimethoprim 1 each PO Q12H #20 tablet 06/06/15 Unknown Rx [Bactrim DS TAB] Prednisone [predniSONE 10 mg 10 mg PO .TAPER #1 tab.ds.pk 02/22/16 Unknown Rx (6-Day Pack, 21 Tabs)] Naproxen [Naprosyn TAB] 500 mg PO BID PRN #20 tablet 08/11/16 Unknown Rx Neomycn/Bacitrc/Polymyx/Pramox 28.4 gm TP BID #1 oint...g. 08/11/16 Unknown Rx [Triple Antibiotic Plus Ointmnt] Fluticasone [Flonase] 1 spray NS QDAY #1 bottle 10/27/16 Unknown Rx Benzonatate [Tessalon Perles] 100 mg PO Q8HR #15 capsule 08/03/18 Unknown Rx Clindamycin [Clindamycin CAP] 300 mg PO Q8H 7 Days cap 10/16/18 Unknown Rx HYDROcodone/APAP 5-325 [[place] 1 each PO Q6HR PRN #15 tablet 10/16/18 Unknown Rx 5/325] Ibuprofen [Motrin] 800 mg PO Q8HR PRN #20 tablet 10/16/18 Unknown Rx Metformin HCl 500 mg PO BID #60 tablet 10/16/18 Unknown Rx methOCARBAMOL [Robaxin TAB] 500 mg PO Q6H PRN #15 tablet 10/16/18 Unknown Rx Amoxicillin/Potassium Clav 1 each PO BID #10 tablet 10/31/18 Unknown Rx [Augmentin 875-125 Tablet] Benzonatate [Tessalon Perles] 100 mg PO Q8HR PRN #30 capsule 10/31/18 Unknown Rx Fluticasone [Flonase] 1 spray NS QDAY #1 bottle 10/31/18 Unknown Rx Ibuprofen [Motrin 800 MG tab] 800 mg PO Q8HR PRN #15 tablet 01/31/20 Unknown Rx Mupirocin [Bactroban 2% OINT] 1 applic TP TID 7 Days #1 tube 01/31/20 Unknown Rx ED Physical Exam - General Limitations: No Limitations General appearance: alert, in no apparent distress - Head Head exam: Present: atraumatic, normocephalic, normal inspection - Eye Eye exam: Present: normal appearance, PERRL - ENT ENT exam: Present: normal exam, normal orophraynx, mucous membranes moist - Neck Neck exam: Present: normal inspection, full ROM. Absent: tenderness, meningismus, lymphadenopathy - Respiratory Respiratory exam: Present: normal lung sounds bilaterally - Cardiovascular Cardiovascular Exam: Present: regular rate, normal rhythm, normal heart sounds - GI/Abdominal GI/Abdominal exam: Present: soft, normal bowel sounds. Absent: distended, tenderness, guarding, rebound, rigid, mass, bruit, pulsatile mass, hernia - Extremities Exam Extremities exam: Present: normal inspection, full ROM, normal capillary refill. Absent: tenderness, pedal edema, calf tenderness - Back Exam Back exam: Present: normal inspection, full ROM. Absent: CVA tenderness (R), CVA tenderness (L) - Neurological Exam Neurological exam: Present: alert, oriented X3, CN II-XII intact, normal gait, reflexes normal. Absent: motor sensory deficit - Psychiatric Psychiatric exam: Present: normal mood, suicidal ideation. Absent: agitated, anxious, flat affect, manic - Skin Skin exam: Present: warm, dry, abrasion ED Course Vital Signs 08/08/20 08/08/20 08/08/20 08:49 10:16 19:30 Temperature 97.7 F 98.2 F Pulse Rate 79 90 Respiratory 18 18 18 Rate Blood Pressure 149/95 Blood Pressure 119/73 [Left] O2 Sat by Pulse 96 97 97 Oximetry 08/08/20 08/09/20 08/09/20 20:04 02:26 08:16 Temperature 97.9 F 97.7 F 97.6 F Pulse Rate 85 74 70 Respiratory 18 16 20 Rate Blood Pressure Blood Pressure 107/67 110/71 112/71 [Left] O2 Sat by Pulse 97 97 97 Oximetry ED Medical Decision Making - Lab Data Result diagrams: 08/08/20 10:10 08/08/20 10:10 Critical care attestation.: If time is entered above; I have spent that time in minutes in the direct care of this critically ill patient, excluding procedure time. ED Disposition Clinical Impression: Suicidal ideation Disposition: [id number]/TX-[id number] PSY HOSP/PSY UNIT Is pt being admited?: No Condition: Stable Referrals: PRIMARY CARE [Primary Care Provider] - 3-5 Days
[2020-08-08 10:26] LABS: Basophils # (Auto) 0.1 K/mm3 (0.0-0.1); Basophils % (Auto) 0.6 % (0.0-1.8); Eosinophils # (Auto) 0.2 K/mm3 (0.0-0.4); Eosinophils % (Auto) 1.8 % (0.0-4.3); Hematocrit 44.7 % (35.5-45.6); Hemoglobin 15.3 gm/dl (11.8-15.2); Lymphocytes # (Auto) 2.4 K/mm3 (1.2-5.4); Lymphocytes % (Auto) 26.7 % (13.4-35.0); Mean Corpuscular HGB Conc 34 % (32-34); Mean Corpuscular Volume 87 fl (84-94); Monocytes # (Auto) 0.7 K/mm3 (0.0-0.8); Monocytes % (Auto) 8.1 % (0.0-7.3); Platelet Count 241 K/mm3 (140-440); Red Blood Count 5.13 M/mm3 (3.65-5.03); Red Cell Distribution Width 13.1 % (13.2-15.2)
[2020-08-08 10:48] LABS: Blood Urea Nitrogen 9 mg/dL (9-20); Calcium 8.6 mg/dL (8.4-10.2); Hemolysis Index 8
[2020-08-08 10:59] LABS: BUN/Creatinine Ratio 13
[2020-08-09 08:17] VITALS: BP 112/71
--- NOTE | 2020-08-09 10:43 | Consultation ---
History of Present Illness - Reason for Consult Consult date: 08/09/20 Reason for consult: SI, meth use - History of Present Psychiatric Illness Mukesh Fraser is a 40y/o male patient who presented to the ER with suicidal thoughts, hallucinations and meth use. During my interview with the patient, he is sitting up watching TV. The patient is a/o x 3. He is cooperative. The patient reports feeling suicidal and "tired of the voices telling me to kill myself." He says "I'm just sick and tired." The patient then shows me the cuts over his arm. They all are superficial. He says "see, I tried to kill myself. Not sure why they didn't put stitches in this one." When telling the patient that he didn't need sutures because the cuts were not deeper than scratch, he became up set and states, "are you saying I didn't haley to kill myself." He then says "this one is deep and it should have gotten stitches." He reports being irritable after that. The verbalizes using methamphetamines. He says he has a history of Bipolar and was taking "depakote, trazodone and prozac." The patient states "but I've been off for years." PAST PSYCHIATRIC HISTORY: Diagnoses: Bipolar Suicide attempts or Self-harm behavior: Denies Prior psychiatric hospitalizations: Denies Substance Abuse history: Meth Previous psychiatric medications tried: prozac, trazodone, depakote Outpatient treatment: not in years PAST MEDICAL HISTORY: None reported Family Psychiatric History: None reported or documented SOCIAL HISTORY Marital Status: Single Living Arrangements: states lives with mom and two sons Employment Status: unemployed Access to guns/weapons: Denies Education: 12th grade History of Abuse: Denies Legal History: Denies REVIEW OF SYSTEMS Constitutional: Negative for weight loss ENT: Negative for stridor Respiratory: Negative for cough or hemoptysis All other systems reviewed and are negative MENTAL STATUS EXAMINATION General Appearance and Behavior: Age appropriate, wearing appropriate clothes, good eye contact Cooperation: Cooperative, participating Psychomotor Behavior: Psychomotor normal Mood: irritable Affect and affective range: Euthymic Thought Process: Goal directed Thought Content: Hallucinations, SI Speech: Normal rate, volume and rhythm Suicidal Ideation: Yes Homicidal Ideation: Denies Hallucinations: Auditory Impulse Control: Limited Insight and Judgment: Limited insight and judgment Memory/Cognition: Normal Attention: Limited Orientation: Alert Assessment and Plan (1)Methamphetamine Use Disorder Current Visit: Yes Status: Acute (2) Substance Induced Mood Disorder Current Visit: Yes Status: Acute (3) Bipolar Disorder Current Visit: Yes Status: chronic (4) Noncompliance with other medical treatments and regimen Current Visit: Yes Status: Acute Treatment Plan [address] 125mg po BID Start Abilify 5mg po daily Start Trazodone 50mg po qhs Start Prozac 10mg po daily Sitter: Defer to primary Medical: Per primary Disposition: Recommend acute inpatient psychiatric treatment once medically clear. Will follow. Thank you for this consult. Medications and Allergies Allergies Allergy/AdvReac Type Severity Reaction Status Date / Time No Known Allergies Allergy Verified 01/31/20 06:07 Home Medications Medication Instructions Recorded Confirmed Last Taken Type Sulfamethoxazole/Trimethoprim 1 each PO Q12H #20 tablet 06/06/15 Unknown Rx [Bactrim DS TAB] Prednisone [predniSONE 10 mg 10 mg PO .TAPER #1 tab.ds.pk 02/22/16 Unknown Rx (6-Day Pack, 21 Tabs)] Naproxen [Naprosyn TAB] 500 mg PO BID PRN #20 tablet 08/11/16 Unknown Rx Neomycn/Bacitrc/Polymyx/Pramox 28.4 gm TP BID #1 oint...g. 08/11/16 Unknown Rx [Triple Antibiotic Plus Ointmnt] Fluticasone [Flonase] 1 spray NS QDAY #1 bottle 10/27/16 Unknown Rx Benzonatate [Tessalon Perles] 100 mg PO Q8HR #15 capsule 08/03/18 Unknown Rx Clindamycin [Clindamycin CAP] 300 mg PO Q8H 7 Days cap 10/16/18 Unknown Rx HYDROcodone/APAP 5-325 [[place] 1 each PO Q6HR PRN #15 tablet 10/16/18 Unknown Rx 5/325] Ibuprofen [Motrin] 800 mg PO Q8HR PRN #20 tablet 10/16/18 Unknown Rx Metformin HCl 500 mg PO BID #60 tablet 10/16/18 Unknown Rx methOCARBAMOL [Robaxin TAB] 500 mg PO Q6H PRN #15 tablet 10/16/18 Unknown Rx Amoxicillin/Potassium Clav 1 each PO BID #10 tablet 10/31/18 Unknown Rx [Augmentin 875-125 Tablet] Benzonatate [Tessalon Perles] 100 mg PO Q8HR PRN #30 capsule 10/31/18 Unknown Rx Fluticasone [Flonase] 1 spray NS QDAY #1 bottle 10/31/18 Unknown Rx Ibuprofen [Motrin 800 MG tab] 800 mg PO Q8HR PRN #15 tablet 01/31/20 Unknown Rx Mupirocin [Bactroban 2% OINT] 1 applic TP TID 7 Days #1 tube 01/31/20 Unknown Rx Mental Status Exam - Vital signs Last Vital Signs Temp 97.6 F 08/09/20 08:16 Pulse 70 08/09/20 08:16 Resp 20 08/09/20 08:16 BP 112/71 08/09/20 08:16 Pulse Ox 97 08/09/20 08:16 Results Result Diagrams: 08/08/20 10:10 08/08/20 10:10 Abnormal lab results 08/08/20 08/08/20 08/08/20 Range/Units 10:10 10:10 10:10 Sodium 136 L (137-145) mmol/L Creatinine 0.7 L (0.8-1.3) mg/dL Glucose 204 H (75-100) mg/dL Salicylates < 0.3 L (2.8-20.0) mg/dL Acetaminophen 5.0 L (10.0-30.0) ug/mL All other labs normal.
[2020-08-09] MEDS ORDERED: FLUoxetine 10 MG TAB PO SCH (11:00)
[2020-08-09] MEDS ORDERED: DIVALPROEX DR 125 MG TAB PO SCH (11:00)
[2020-08-09] MEDS ORDERED: ARIPiprazole 5 MG TAB PO SCH (11:00)
[2020-08-09] MEDS ORDERED: traZODone 50 MG TAB PO SCH (22:00)
== END 2020-08-09 14:45 ==
LOC: EEVIPCON 08:43 → ED 08:43
DX: R45.851 Suicidal ideations (principal); F15.10 Other stimulant abuse, uncomplicated; F17.200 Nicotine dependence, unspecified, uncomplicated; F31.9 Bipolar disorder, unspecified; Z79.899 Other long term (current) drug therapy; Z98.890 Other specified postprocedural states
CPT/HCPCS: 36415; 80048; 80307; 80320; 81001; 82962; 85025; G0480